=== PATIENT | male | born 1960 | race African-American/Black ===

== ENCOUNTER 2016-12-30 06:04 | Day surgery (SDC) | payer OTHER ==
[~2016-12-30] VITALS: Ht 166.4 cm; Wt 102.3 kg
[2016-12-30] MEDS ORDERED: SODIUM CHLORIDE 0.9% 1,000 ML IV ONE ×2 (06:18→06:30)
[2016-12-30] MEDS ORDERED: MULT-71 PO (06:46)
[2016-12-30] MEDS ORDERED: LISI-662 PO (06:46)
[2016-12-30] MEDS ORDERED: AMLO2.5T PO (06:46)
[2016-12-30] MEDS ORDERED: TERA5 PO (06:46)
[2016-12-30] MEDS ORDERED: FAMO20 PO (06:46)
[2016-12-30] MEDS ORDERED: MONT10TA21 PO (06:46)
[2016-12-30] MEDS ORDERED: ZOLP10 PO (06:46)
[2016-12-30] MEDS ORDERED: ISOS30TA6 PO (06:46)
[2016-12-30] MEDS ORDERED: ESCI10TA PO (06:46)
[2016-12-30] MEDS ORDERED: MIDAZOLAM HCL 2 MG/2 ML VIAL ONE (07:10)
[2016-12-30] MEDS ORDERED: FentaNYL CITRATE-PF 100 MCG/2 ML VIAL ONE (07:10)
[2016-12-30 07:21] LABS: GLUCOSE,POINT OF CARE 103 MG/DL (70-110)
[2016-12-30] MEDS ORDERED: MethylPREDNISolone SOD SUCC 125 MG/2 ML VIAL IVP ONE (09:00)
[2016-12-30] MEDS ORDERED: MethylPREDNISolone SOD SUCC 125 MG/2 ML VIAL ONE (09:30)
[2016-12-30] MEDS ORDERED: BENZOCAINE 20% 50 MCG/SPRAY 57 GM TP ONE (17:42)
[2016-12-30] MEDS ORDERED: ALBUTEROL SULFATE 2.5 MG/0.5 ML NEB SOLUTION NEB ONE (17:42)
[2016-12-30] MEDS ORDERED: LIDOCAINE HCL 4% 50 ML SOLUTION TP ONE (17:42)
[2016-12-30] MEDS ORDERED: LIDOCAINE HCL 2% 30 ML JELLY TP ONE (17:42)
[2016-12-30] MEDS ORDERED: OXYGEN THERAPY IH SCH (20:00)
== END 2016-12-30 11:05 | disposition home or self-care (01) ==
LOC: SURGERY 06:04
PROVIDERS: ATTEND Internal Medicine Critical Care Medicine
DX: J38.4 Edema of larynx (principal); B37.0 Candidal stomatitis; E11.9 Type 2 diabetes mellitus without complications; E78.00 Pure hypercholesterolemia, unspecified; M54.9 Dorsalgia, unspecified; F17.210 Nicotine dependence, cigarettes, uncomplicated; F12.90 Cannabis use, unspecified, uncomplicated; Z91.018 Allergy to other foods; Z72.89 Other problems related to lifestyle; Z98.890 Other specified postprocedural states; Z87.01 Personal history of pneumonia (recurrent)
CPT/HCPCS: 31623; 31624; 71010; 82962; 87015; 87070; 87101; 87205; 87220; 93005; J2930; J7030; 87147; 88108; 88312; J2250; J3010

== ENCOUNTER 2019-05-19 17:05 | Inpatient (IN) | payer OTHER ==
[~2019-05-19] VITALS: Ht 170.2 cm; Wt 100.7 kg
[~2019-05-19 17:05] MED LIST: AMLO2.5T4 PO; ESCI10TA PO; FAMO20 PO; ISOS30TA6 PO; LISI-662 PO; MONT10TA21 PO; MULT1TAB70 PO; TERA5CAP12 PO; ZOLP10TA7 PO
[2019-05-19] MEDS ORDERED: CHLO10 PO (17:35)
[2019-05-19] MEDS ORDERED: OXYB5 PO (17:35)
[2019-05-19 17:41] LABS: GLUCOSE,POINT OF CARE 101 MG/DL (70-110)
[2019-05-19] MEDS ORDERED: SODIUM CHLORIDE 0.9% 3,000 ML IV ONE (20:24)
[2019-05-19] MEDS ORDERED: 0.9% SODIUM CHLORIDE 10 ML SYRINGE IVP PRN (20:30)
[2019-05-19] MEDS ORDERED: IOVERSOL 320 MG/ML 100 ML VIAL ONE (20:33)
[2019-05-19] MEDS ORDERED: SODIUM CHLORIDE 0.9% 100 ML ONE (20:33)
[2019-05-19 20:48] LABS: BASOPHILS % (AUTO) 0.7 % (0.0-2.0); EOSINOPHILS % (AUTO) 1.6 % (1.0-6.0); HEMATOCRIT 43.1 % (41-53); HEMOGLOBIN 14.7 g/dL (13.5-17.5); LYMPHOCYTES # (AUTO) 1.6 K/uL (1.0-4.8); LYMPHOCYTES % (AUTO) 14.5 % (22.0-44.0); MEAN CORPUSCULAR HEMOGLOBIN 31.9 pg (26.0-34.0); MEAN CORPUSCULAR HGB CONC 34.2 G/dL (31.0-37.0); MEAN CORPUSCULAR VOLUME 93 fL (80-100); MONOCYTES # (AUTO) 1.2 K/uL (0.1-1.0); MONOCYTES % (AUTO) 10.6 % (2.0-9.0); NEUTROPHILS # (AUTO) 7.9 K/uL (1.8-7.7); NEUTROPHILS % (AUTO) 72.6 % (40.0-70.0); PLATELET COUNT (AUTO) 199 K/uL (150-450); RED BLOOD CELL COUNT(AUTO) 4.62 MIL/uL (4.50-5.90)
[2019-05-19] MEDS ORDERED: DOXYCYCLINE HYCLATE 100 MG in DEXTROSE 5%-WATER 100 ML IV ONE (21:00)
[2019-05-19] MEDS ORDERED: ACETAMINOPHEN 500 MG TABLET PO ONE (21:00)
[2019-05-19 21:06] LABS: PROTHROMBIN TIME 10.1 SEC (9.4-11.6)
[2019-05-19 21:07] LABS: ANION GAP 11 mmol/L (8-16); CALCIUM, TOTAL 8.8 mg/dL (8.8-10.5); CARBON DIOXIDE 25 mmol/L (22-29); CHLORIDE 105 mmol/L (98-107); CREATININE 1.27 mg/dL (0.60-1.30); GLOMERULAR FILTR. RATE CALC > 60 mL/min (>60); GLUCOSE,RANDOM 98 mg/dL (70-110); POTASSIUM 4.4 mmol/L (3.5-5.1); SODIUM SERUM 141 mmol/L (136-145); UREA NITROGEN, BLOOD 20 mg/dL (7-18)
[2019-05-19 21:10] LABS: ALANINE AMINOTRANSFERASE 38 U/L (12-78); ALBUMIN 2.9 g/dL (3.4-5.0); ALKALINE PHOSPHATASE 92 U/L (46-116); ASPARTATE AMINOTRANSFERASE 31 U/L (15-37); BILIRUBIN,TOTAL 0.8 mg/dL (0.1-1.0)
[2019-05-19 21:16] LABS: LACTIC ACID 0.8 mmol/L (0.4-2.0)
[2019-05-19] MEDS ORDERED: IOVERSOL 350 MG/ML 100 ML VIAL ONE (21:25)
[2019-05-19 22:24] LABS: APPEARANCE,URINE CLEAR (CLEAR); BILIRUBIN,URINE NEGATIVE (NEGATIVE); GLUCOSE, URINE (UA) NEGATIVE (NEGATIVE); KETONES,URINE TRACE mg/dL (NEGATIVE); OCCULT BLOOD,URINE NEGATIVE (NEGATIVE); PH,URINE 6.5 (5.0-8.0); PROTEIN,URINE SEE CONFIRM (NEGATIVE)
[2019-05-19 22:25] LABS: LEUKOCYTE ESTERASE ,URINE NEGATIVE (NEGATIVE); NITRATE,URINE NEGATIVE (NEGATIVE)
[2019-05-19 22:33] LABS: SULFOSALICYLIC ACID,URINE 2+ (Negative)
[2019-05-19 22:36] LABS: BACTERIA,URINE None Seen /HPF (None Seen); RBC,URINE 0-2 /HPF (0-2); SQUAMOUS EPITHELIAL CELL,UR Few /LPF (None Seen); WBC,URINE 0-2 /HPF (0-5)
[2019-05-19] MEDS: PIPERACILLIN/TAZO 3.375 GM/D5W 50 ML IV SCH (23:00)
[2019-05-19] MEDS ORDERED: DEXTROSE 50%-WATER 25 GM/50 ML SYRINGE IVP PRN (23:00)
[2019-05-19] MEDS ORDERED: MAGNESIUM HYDROXIDE SUSPENSION 30 ML UDCUP PO PRN (23:00)
[2019-05-19] MEDS ORDERED: MORPHINE SULFATE 2 MG/ML SYRINGE IVP PRN (23:00)
[2019-05-19] MEDS ORDERED: INSULIN LISPRO 100 UNITS/ML SQ PRN (23:00)
[2019-05-19] MEDS ORDERED: VANCOMYCIN HCL 1.5 GM in DEXTROSE 5%-WATER 250 ML IV ONE (23:30)
[2019-05-20 03:26] VITALS: BP 151/84
[2019-05-20] MEDS ORDERED: SODIUM CHLORIDE 0.9% 500 ML IV ONE (03:37)
[2019-05-20] MEDS: PIPERACILLIN/TAZO 3.375 GM/D5W 50 ML IV SCH ×4 (04:01→21:50)
[2019-05-20] MEDS: ACETAMINOPHEN 325 MG TABLET PO PRN (04:07)
[2019-05-20] MEDS ORDERED: INFLUENZA VIRUS VACCINE QVS 2019-20 (3YR+)/PF 60 MCG/0.5 ML SYRINGE IM ONE (05:45)
[2019-05-20] MEDS ORDERED: VANCOMYCIN HCL 1 GM/D5% WATER 200 ML IV SCH (07:00)
[2019-05-20 08:25] LABS: GLUCOMETER DEV NAME(LOC) 6N.2; GLUCOSE,POINT OF CARE 124 MG/DL (70-110)
[2019-05-20 08:55] LABS: ANION GAP 8 mmol/L (8-16); CALCIUM, TOTAL 8.3 mg/dL (8.8-10.5); CARBON DIOXIDE 26 mmol/L (22-29); CHLORIDE 104 mmol/L (98-107); CREATININE 1.24 mg/dL (0.60-1.30); GLOMERULAR FILTR. RATE CALC > 60 mL/min (>60); GLUCOSE,RANDOM 126 mg/dL (70-110); POTASSIUM 4.2 mmol/L (3.5-5.1); SODIUM SERUM 138 mmol/L (136-145); UREA NITROGEN, BLOOD 16 mg/dL (7-18)
[2019-05-20] MEDS: DOCUSATE SODIUM 100 MG CAPSULE PO SCH ×2 (09:25→20:45)
[2019-05-20] MEDS: FAMOTIDINE 20 MG TABLET PO SCH (09:25)
[2019-05-20 09:30] VITALS: BP 175/95
[2019-05-20] MEDS: AmLODIPine BESYLATE 5 MG TABLET PO SCH (10:59)
[2019-05-20 13:21] VITALS: BP 150/97
[2019-05-20 14:49] LABS: GLUCOMETER DEV NAME(LOC) 6N.2; GLUCOSE,POINT OF CARE 93 MG/DL (70-110)
[2019-05-20 18:00] LABS: GLUCOMETER DEV NAME(LOC) 4E.2; GLUCOSE,POINT OF CARE 109 MG/DL (70-110)
[2019-05-20] MEDS: VANCOMYCIN HCL 1.25 GM in DEXTROSE 5%-WATER 250 ML IV SCH (18:26)
[2019-05-20] MEDS: OxyCODONE HCL/ACETAMINOPHEN 5-325 MG TABLET PO PRN (18:29)
[2019-05-20 22:07] LABS: GLUCOMETER DEV NAME(LOC) 6N.2; GLUCOSE,POINT OF CARE 131 MG/DL (70-110)
[2019-05-20 23:20] VITALS: BP 160/72
[2019-05-21] MEDS: PIPERACILLIN/TAZO 3.375 GM/D5W 50 ML IV SCH ×4 (03:47→22:20)
[2019-05-21 04:40] VITALS: BP 142/93
[2019-05-21] MEDS: VANCOMYCIN HCL 1.25 GM in DEXTROSE 5%-WATER 250 ML IV SCH ×2 (06:05→19:06)
[2019-05-21] MEDS: ACETAMINOPHEN 325 MG TABLET PO PRN ×2 (06:18→15:32)
[2019-05-21 07:01] LABS: GLUCOMETER DEV NAME(LOC) 6N.2; GLUCOSE,POINT OF CARE 108 MG/DL (70-110)
[2019-05-21 07:58] VITALS: BP 142/69
[2019-05-21] MEDS: DOCUSATE SODIUM 100 MG CAPSULE PO SCH ×2 (08:01→20:27)
[2019-05-21] MEDS: AmLODIPine BESYLATE 5 MG TABLET PO SCH (08:01)
[2019-05-21] MEDS: OxyCODONE HCL/ACETAMINOPHEN 5-325 MG TABLET PO PRN ×2 (08:01→20:27)
[2019-05-21] MEDS: FAMOTIDINE 20 MG TABLET PO SCH (08:01)
[2019-05-21 08:37] LABS: EOSINOPHILS % (AUTO) 3.4 % (1.0-6.0); HEMATOCRIT 43.5 % (41-53); HEMOGLOBIN 14.8 g/dL (13.5-17.5); LYMPHOCYTES # (AUTO) 1.2 K/uL (1.0-4.8); LYMPHOCYTES % (AUTO) 13.7 % (22.0-44.0); MEAN CORPUSCULAR HEMOGLOBIN 31.3 pg (26.0-34.0); MEAN CORPUSCULAR HGB CONC 33.9 G/dL (31.0-37.0); MEAN CORPUSCULAR VOLUME 92 fL (80-100); NEUTROPHILS % (AUTO) 70.9 % (40.0-70.0); PLATELET COUNT (AUTO) 203 K/uL (150-450); RED BLOOD CELL COUNT(AUTO) 4.72 MIL/uL (4.50-5.90); RED CELL DISTRIBUTION WIDTH 13.7 % (11.5-14.5)
[2019-05-21 08:46] LABS: ANION GAP 8 mmol/L (8-16); CALCIUM, TOTAL 8.3 mg/dL (8.8-10.5); CARBON DIOXIDE 26 mmol/L (22-29); CHLORIDE 100 mmol/L (98-107); GLOMERULAR FILTR. RATE CALC > 60 mL/min (>60); GLUCOSE,RANDOM 113 mg/dL (70-110); POTASSIUM 4.1 mmol/L (3.5-5.1); SODIUM SERUM 134 mmol/L (136-145); UREA NITROGEN, BLOOD 15 mg/dL (7-18)
[2019-05-21 11:29] VITALS: BP 168/85
[2019-05-21 13:30] LABS: GLUCOMETER DEV NAME(LOC) 6N.2; GLUCOSE,POINT OF CARE 115 MG/DL (70-110)
[2019-05-21 15:59] VITALS: BP 150/107
[2019-05-21] MEDS: CloNIDine HCL 0.1 MG TABLET PO SCH (16:47)
[2019-05-21 20:55] VITALS: BP 164/101
[2019-05-21 23:08] LABS: GLUCOMETER DEV NAME(LOC) 6N.2; GLUCOSE,POINT OF CARE 150 MG/DL (70-110)
[2019-05-21 23:08] LABS: GLUCOMETER DEV NAME(LOC) 6N.2; GLUCOSE,POINT OF CARE 99 MG/DL (70-110)
[2019-05-21 23:30] VITALS: BP 134/87
[2019-05-22] MEDS: CloNIDine HCL 0.1 MG TABLET PO SCH (00:36)
[2019-05-22 04:00] VITALS: BP 156/88
[2019-05-22] MEDS: PIPERACILLIN/TAZO 3.375 GM/D5W 50 ML IV SCH ×2 (04:32→09:51)
[2019-05-22 06:03] LABS: BASOPHILS % (AUTO) 0.9 % (0.0-2.0); HEMATOCRIT 45.4 % (41-53); HEMOGLOBIN 15.4 g/dL (13.5-17.5); LYMPHOCYTES # (AUTO) 1.2 K/uL (1.0-4.8); LYMPHOCYTES % (AUTO) 16.8 % (22.0-44.0); MEAN CORPUSCULAR HEMOGLOBIN 31.2 pg (26.0-34.0); MEAN CORPUSCULAR HGB CONC 33.9 G/dL (31.0-37.0); MEAN CORPUSCULAR VOLUME 92 fL (80-100); MONOCYTES % (AUTO) 13.3 % (2.0-9.0); NEUTROPHILS # (AUTO) 4.9 K/uL (1.8-7.7); PLATELET COUNT (AUTO) 219 K/uL (150-450); RED BLOOD CELL COUNT(AUTO) 4.93 MIL/uL (4.50-5.90); RED CELL DISTRIBUTION WIDTH 13.5 % (11.5-14.5)
[2019-05-22 06:05] LABS: ANION GAP 10 mmol/L (8-16); CALCIUM, TOTAL 8.7 mg/dL (8.8-10.5); CARBON DIOXIDE 24 mmol/L (22-29); CHLORIDE 102 mmol/L (98-107); CREATININE 1.13 mg/dL (0.60-1.30); GLOMERULAR FILTR. RATE CALC > 60 mL/min (>60); GLUCOSE,RANDOM 104 mg/dL (70-110); POTASSIUM 4.1 mmol/L (3.5-5.1); SODIUM SERUM 136 mmol/L (136-145); UREA NITROGEN, BLOOD 17 mg/dL (7-18)
[2019-05-22] MEDS: VANCOMYCIN HCL 1.25 GM in DEXTROSE 5%-WATER 250 ML IV SCH (06:29)
[2019-05-22 07:07] LABS: GLUCOMETER DEV NAME(LOC) 6N.2; GLUCOSE,POINT OF CARE 99 MG/DL (70-110)
[2019-05-22] MEDS ORDERED: CloNIDine HCL 0.1 MG TABLET PO PRN (07:30)
[2019-05-22 07:55] VITALS: BP 141/89
[2019-05-22] MEDS: OxyCODONE HCL/ACETAMINOPHEN 5-325 MG TABLET PO PRN (08:10)
[2019-05-22] MEDS: DOCUSATE SODIUM 100 MG CAPSULE PO SCH (08:10)
[2019-05-22] MEDS: FAMOTIDINE 20 MG TABLET PO SCH (08:10)
[2019-05-22 08:16] LABS: VANCOMYCIN,RANDOM 15.2 mcg/mL (25.0-50.0)
[2019-05-22] MEDS ORDERED: AmLODIPine BESYLATE 10 MG TABLET PO SCH (09:00)
[2019-05-22] MEDS ORDERED: BACTDSB PO (11:37)
[2019-05-22 11:50] VITALS: BP 156/91
[2019-05-22 13:09] LABS: GLUCOMETER DEV NAME(LOC) 6N.2; GLUCOSE,POINT OF CARE 82 MG/DL (70-110)
== END 2019-05-22 13:16 | disposition home or self-care (01) | DRG 720 ==
LOC: EMS 17:07 → 4E 23:09
PROVIDERS: ADMIT Internal Medicine; ATTEND Internal Medicine
DX: A41.9 Sepsis, unspecified organism (principal); E66.01 Morbid (severe) obesity due to excess calories; L03.114 Cellulitis of left upper limb; E11.9 Type 2 diabetes mellitus without complications; E78.00 Pure hypercholesterolemia, unspecified; E78.5 Hyperlipidemia, unspecified; F17.210 Nicotine dependence, cigarettes, uncomplicated; I10 Essential (primary) hypertension; Z68.34 Body mass index [BMI] 34.0-34.9, adult; Z91.018 Allergy to other foods
CPT/HCPCS: 73201; 83605; 87040; 93005; 96365; G0378; J2543; J3370; J3490; J7030; J7040; J7050; J7060